=== PATIENT | male | born 1945 | race Caucasian/White ===

== ENCOUNTER 2018-06-02 20:39 | Emergency (ER) | payer MEDICARE, MEDICAID ==
[~2018-06-02] VITALS: Ht 165.1 cm; Wt 74.8 kg
[2018-06-02 20:48] VITALS: BP_SYST 153
[2018-06-02 21:23] VITALS: BP_SYST 150
== END 2018-06-02 21:24 | disposition home or self-care (01) ==
LOC: SED 20:39
DX: R05 Cough (principal); E11.9 Type 2 diabetes mellitus without complications; I10 Essential (primary) hypertension
CPT/HCPCS: 99281

== ENCOUNTER 2023-03-11 11:51 | Inpatient (IN) | payer OTHER, MEDICAID ==
[~2023-03-11] VITALS: Ht 165.1 cm; Wt 71.9 kg
[2023-03-11 12:09] VITALS: BP_SYST 114; PULSE 83; RESP 18; TEMP 98; O2SAT 99
[2023-03-11 13:01] LABS: BASOPHILS # (AUTO) 0.1 K/uL (0.0-0.2); BASOPHILS % (AUTO) 0.4 % (0.0-2.0); EOSINOPHILS % (AUTO) 0.1 % (0.0-4.0); HEMATOCRIT 43.7 % (36-54); HEMOGLOBIN 14.5 g/dL (14.0-18.0); LYMPHOCYTES # (AUTO) 1.4 K/uL (1.0-5.5); MEAN CORPUSCULAR HEMOGLOBIN 30 pg (27-31); MEAN CORPUSCULAR HGB CONC 33 % (32-36); MEAN CORPUSCULAR VOLUME 91 fL (79.0-98.0); MONOCYTES # (AUTO) 1.3 K/uL (0.0-1.0); MONOCYTES % (AUTO) 7.4 % (1.7-9.3); NEUTROPHILS % (AUTO) 84.1 % (40.0-70.0); PLATELET COUNT (AUTO) 208 K/uL (130-430); RED BLOOD CELL COUNT(AUTO) 4.81 MIL/uL (4.2-6.2); RED CELL DISTRIBUTION WIDTH 14.2 % (9.0-15.0); WHITE BLOOD COUNT (AUTO) 17.8 K/uL (4.8-10.8)
[2023-03-11] MEDS ORDERED: LOSA25TA18 PO (13:15)
[2023-03-11] MEDS ORDERED: ATOR40TA68 PO (13:15)
[2023-03-11] MEDS ORDERED: AMIO200T68 PO (13:15)
[2023-03-11] MEDS ORDERED: LEVO88TA5 PO (13:15)
[2023-03-11] MEDS ORDERED: METF-379 PO ×2 (13:15→15:40)
[2023-03-11] MEDS ORDERED: RIVA20TA PO ×2 (13:15→15:40)
[2023-03-11] MEDS ORDERED: DAPA10TA PO ×2 (13:15→15:40)
[2023-03-11 13:17] LABS: ANION GAP 11 (5-15); CARBON DIOXIDE 25 mmol/L (23-29); CHLORIDE 96 mmol/L (98-107); CREATININE 1.07 mg/dL (0.55-1.30); GLUCOSE 178 mg/dL (74-106); POTASSIUM 4.1 mmol/L (3.5-5.1); SODIUM SERUM 132 mmol/L (136-145); UREA NITROGEN, BLOOD 15 mg/dL (8-21)
[2023-03-11 13:20] LABS: INR 1.4 (0.80-1.20); PROTHROMBIN TIME 14.4 SECS (9.5-12.5)
[2023-03-11 13:24] LABS: ALANINE AMINOTRANSFERASE 50 U/L (12-78); ALBUMIN 3.5 g/dL (3.4-4.8); ASPARTATE AMINOTRANSFERASE 36 U/L (10-37); TOTAL BILIRUBIN 1.3 mg/dL (0.0-1.0); TOTAL PROTEIN, SERUM 7.5 g/dL (6.4-8.3)
[2023-03-11] MEDS ORDERED: cefTRIAXone 1 GM IVPB PREMIX 50 ML IV ONE (13:45)
[2023-03-11] MEDS ORDERED: NACL 0.9% 2,000 ML IV ONE (13:45)
[2023-03-11 13:52] LABS: BILIRUBIN,URINE NEGATIVE (NEGATIVE); CLARITY/URINE SL CLOUDY (CLEAR); COLOR,URINE YELLOW (YELLOW); GLUCOSE,URINE 3+ (NEGATIVE); KETONES,URINE TRACE (NEGATIVE); LEUKOCYTE ESTERASE ,URINE NEGATIVE (NEGATIVE); NITRITE, URINE NEGATIVE (NEGATIVE); PROTEIN URINE NEGATIVE (NEGATIVE)
[2023-03-11 14:00] LABS: BLOOD, URINE TRACE (NEGATIVE)
[2023-03-11 14:09] LABS: BACTERIA,URINE MODERATE /HPF (None Seen); RBC,URINE 0-3 /HPF (0-3)
[2023-03-11] MEDS ORDERED: NACL 0.9% 1,000 ML IV ONE (15:15)
[2023-03-11] MEDS ORDERED: LOSA-412 PO (15:40)
[2023-03-11] MEDS ORDERED: LIP40 PO (15:40)
[2023-03-11] MEDS ORDERED: AMIO200T66 PO (15:40)
[2023-03-11] MEDS ORDERED: LEVO88TA2 PO (15:40)
[2023-03-11 15:52] LABS: COVID19 ANTIGEN SOFIA FIA NEGATIVE (NEGATIVE)
[2023-03-11 16:05] LABS: INFLUENZA TYPE A Negative (NEGATIVE); INFLUENZA TYPE B NEGATIVE (NEGATIVE)
[2023-03-11] MEDS: NACL 0.9% 1,000 ML IV SCH ×2 (18:43→18:56)
[2023-03-11] MEDS ORDERED: ACETAMINOPHEN 325 MG TABLET PO PRN ×2 (20:30→21:00)
[2023-03-11] MEDS ORDERED: DEXTROSE 50% JECT 50 ML DISP.SYRIN IVP PRN ×2 (20:45)
[2023-03-11 20:58] VITALS: BP_SYST 137; PULSE 91; RESP 18; TEMP 98.6
[2023-03-11] MEDS: metFORMIN HCL 500 MG TABLET PO SCH (21:13)
[2023-03-11] MEDS ORDERED: ZOLPIDEM TARTRATE 5 MG TABLET PO PRN (21:15)
[2023-03-11 21:48] VITALS: O2SAT 97
[2023-03-11] MEDS: PIPERACILLIN/TAZO 3.375/DEX-IS 50 ML IV SCH (23:34)
[2023-03-12 01:35] VITALS: BP_SYST 130; PULSE 78; RESP 17; TEMP 96.8; O2SAT 98
[2023-03-12] MEDS: PIPERACILLIN/TAZO 3.375/DEX-IS 50 ML IV SCH ×3 (05:35→18:17)
[2023-03-12] MEDS: LEVOTHYROXINE SODIUM 0.088 MG TABLET PO SCH (06:06)
[2023-03-12 08:00] VITALS: O2SAT 95
[2023-03-12 08:30] VITALS: BP_SYST 133; PULSE 76; RESP 16; TEMP 97.5; O2SAT 95
[2023-03-12] MEDS: Dapagliflozin Propanediol (Farxiga) 10 MG PO SCH (09:00)
[2023-03-12] MEDS ORDERED: NON-FORMULARY MEDICATION (Dapagliflozin Propanediol (Farxiga) 1 TAB) PO SCH (09:00)
[2023-03-12] MEDS ORDERED: FARXIGA 10 MG PO SCH (09:00)
[2023-03-12 09:15] LABS: ANION GAP 10 (5-15); CALCIUM 7.6 mg/dL (8.4-11.0); CARBON DIOXIDE 23 mmol/L (23-29); CHLORIDE 101 mmol/L (98-107); CREATININE 0.72 mg/dL (0.55-1.30); GLUCOSE 192 mg/dL (74-106); POTASSIUM 3.8 mmol/L (3.5-5.1); SODIUM SERUM 134 mmol/L (136-145); UREA NITROGEN, BLOOD 12 mg/dL (8-21)
[2023-03-12 09:26] LABS: ALANINE AMINOTRANSFERASE 149 U/L (12-78); CHOLESTEROL 109 mg/dL (<200); FREE T4 (FREE THYROXINE) 1.8 ng/dL (0.6-1.6); HDL CHOLESTEROL 70 mg/dL (>45); THYROID STIMULATING HORMONE 1.34 uIu/mL (0.34-4.82); TOTAL BILIRUBIN 1.3 mg/dL (0.0-1.0); TOTAL PROTEIN, SERUM 6.6 g/dL (6.4-8.3); TRIGLYCERIDES 63 mg/dL (30-150)
[2023-03-12 09:35] LABS: BASOPHILS % (AUTO) 0.2 % (0.0-2.0); EOSINOPHILS % (AUTO) 0.2 % (0.0-4.0); HEMATOCRIT 41.1 % (36-54); HEMOGLOBIN 13.4 g/dL (14.0-18.0); LYMPHOCYTES # (AUTO) 1.4 K/uL (1.0-5.5); LYMPHOCYTES % (AUTO) 10.1 % (20.5-51.5); MEAN CORPUSCULAR HEMOGLOBIN 30 pg (27-31); MEAN CORPUSCULAR HGB CONC 33 % (32-36); MEAN CORPUSCULAR VOLUME 91 fL (79.0-98.0); MONOCYTES # (AUTO) 0.9 K/uL (0.0-1.0); MONOCYTES % (AUTO) 6.5 % (1.7-9.3); NEUTROPHILS # (AUTO) 11.3 K/uL (1.8-7.7); PLATELET COUNT (AUTO) 179 K/uL (130-430); RED BLOOD CELL COUNT(AUTO) 4.49 MIL/uL (4.2-6.2); WHITE BLOOD COUNT (AUTO) 13.6 K/uL (4.8-10.8)
[2023-03-12 09:45] LABS: ASPARTATE AMINOTRANSFERASE 114 U/L (10-37)
[2023-03-12] MEDS: metFORMIN HCL 500 MG TABLET PO SCH ×3 (10:43→21:22)
[2023-03-12] MEDS: AMIODARONE HCL 200 MG TABLET PO SCH (10:44)
[2023-03-12] MEDS: LOSARTAN POTASSIUM 25 MG TABLET PO SCH (10:45)
[2023-03-12] MEDS: ATORVASTATIN 20 MG TABLET PO SCH (10:45)
[2023-03-12] MEDS: RIVAROXABAN 10 MG TABLET PO SCH (10:47)
[2023-03-12] MEDS: INSULIN REGULAR, HUMAN 100 UNITS/ML, 3 ML VIAL (humuLIN R) SUBCUT PRN ×2 (11:43→21:30)
[2023-03-12 12:00] VITALS: BP_SYST 123; PULSE 57; RESP 16; TEMP 97.8; O2SAT 98
[2023-03-12 16:00] VITALS: BP_SYST 123; PULSE 56; RESP 16; TEMP 97.9; O2SAT 98
[2023-03-12 19:40] VITALS: BP_SYST 125; PULSE 72; RESP 18; TEMP 97.7; O2SAT 97
[2023-03-13] MEDS: PIPERACILLIN/TAZO 3.375/DEX-IS 50 ML IV SCH ×2 (00:24→06:38)
[2023-03-13 00:49] VITALS: BP_SYST 126; PULSE 60; RESP 17; TEMP 98.1; O2SAT 98
[2023-03-13] MEDS: LEVOTHYROXINE SODIUM 0.088 MG TABLET PO SCH (06:43)
[2023-03-13 08:10] VITALS: BP_SYST 128; PULSE 69; RESP 18; TEMP 98.1; O2SAT 97
[2023-03-13] MEDS: Dapagliflozin Propanediol (Farxiga) 10 MG PO SCH (10:12)
[2023-03-13] MEDS: RIVAROXABAN 10 MG TABLET PO SCH (10:14)
[2023-03-13] MEDS: metFORMIN HCL 500 MG TABLET PO SCH (10:15)
[2023-03-13] MEDS: AMIODARONE HCL 200 MG TABLET PO SCH (10:15)
[2023-03-13] MEDS: ATORVASTATIN 20 MG TABLET PO SCH (10:15)
[2023-03-13] MEDS: LOSARTAN POTASSIUM 25 MG TABLET PO SCH (10:16)
[2023-03-13] MEDS ORDERED: LEVO-62 PO (11:27)
[2023-03-13] MEDS ORDERED: LACT1CAP89 PO (11:28)
[2023-03-13 11:36] LABS: BASOPHILS % (AUTO) 0.5 % (0.0-2.0); EOSINOPHILS # (AUTO) 0.1 K/uL (0.0-0.4); EOSINOPHILS % (AUTO) 1.1 % (0.0-4.0); HEMATOCRIT 40.8 % (36-54); HEMOGLOBIN 13.7 g/dL (14.0-18.0); LYMPHOCYTES # (AUTO) 1.3 K/uL (1.0-5.5); LYMPHOCYTES % (AUTO) 14.4 % (20.5-51.5); MEAN CORPUSCULAR HEMOGLOBIN 31 pg (27-31); MEAN CORPUSCULAR HGB CONC 34 % (32-36); MEAN CORPUSCULAR VOLUME 91 fL (79.0-98.0); MONOCYTES # (AUTO) 0.5 K/uL (0.0-1.0); NEUTROPHILS # (AUTO) 6.9 K/uL (1.8-7.7); PLATELET COUNT (AUTO) 190 K/uL (130-430); RED BLOOD CELL COUNT(AUTO) 4.49 MIL/uL (4.2-6.2); RED CELL DISTRIBUTION WIDTH 14.2 % (9.0-15.0); WHITE BLOOD COUNT (AUTO) 8.8 K/uL (4.8-10.8)
[2023-03-13 11:42] LABS: ANION GAP 4 (5-15); CALCIUM 7.9 mg/dL (8.4-11.0); CARBON DIOXIDE 26 mmol/L (23-29); CHLORIDE 98 mmol/L (98-107); GLUCOSE 180 mg/dL (74-106); POTASSIUM 3.9 mmol/L (3.5-5.1); SODIUM SERUM 128 mmol/L (136-145); UREA NITROGEN, BLOOD 15 mg/dL (8-21)
[2023-03-13 12:00] VITALS: BP_SYST 136; PULSE 69; RESP 18; TEMP 98.4; O2SAT 96
[2023-03-13 14:06] VITALS: BP_SYST 136; PULSE 69; RESP 18; TEMP 98.4; O2SAT 96
== END 2023-03-13 14:25 | disposition home health service (06) | DRG 871 ==
LOC: SED 11:51 → STU 15:12 → SMU 03-13 04:10
PROVIDERS: ADMIT Internal Medicine; ATTEND Internal Medicine
DX: A41.9 Sepsis, unspecified organism (principal); G93.41 Metabolic encephalopathy; N39.0 Urinary tract infection, site not specified; E87.1 Hypo-osmolality and hyponatremia; J98.11 Atelectasis; E03.9 Hypothyroidism, unspecified; I48.0 Paroxysmal atrial fibrillation; E66.9 Obesity, unspecified; Z20.822 Contact with and (suspected) exposure to COVID-19; E11.9 Type 2 diabetes mellitus without complications; I44.0 Atrioventricular block, first degree; Z79.84 Long term (current) use of oral hypoglycemic drugs; Z79.01 Long term (current) use of anticoagulants; Z79.899 Other long term (current) drug therapy; Z87.891 Personal history of nicotine dependence; Z68.26 Body mass index [BMI] 26.0-26.9, adult
CPT/HCPCS: 36415; 70450-TC; 71045; 76376; 76700-TC; 80048; 80053; 80061; 81000; 82962; 83605; 83735; 83880; 84439; 84443; 84484; 85025; 85610-TC; 85651-TC; 85730-TC; 87040; 87086; 93005; 93306; 96361; 96365; 97110-GP; 97116-GP; 97530-GP; 99291; G0378; J0696; J1815; J2543; J7060